=== PATIENT | female | born 1970 | race Caucasian/White ===

== ENCOUNTER 2017-05-17 09:48 | Emergency (ER) | payer OTHER ==
[~2017-05-17] VITALS: Ht 170.2 cm; Wt 147.4 kg
[~2017-05-17 09:48] MED LIST: ATIVAN0.5 MG PO; COUMADIN7.5 MG PO; CYMBALTA30 MG; FLOMAX0.4 MG PO; IBUPROFEN200 M1; IRON325 M1 PO; KEFLEX500 MG PO; NOHOMEMEDS; NORTRIPTYLINE H50 MG PO; PERCOCET 5/31 TABLET PO; PROZAC20 MG PO; TRAMADOL HCL50 MG PO; VITAMIN D250000 UNIT PO
[2017-05-17 10:55] LABS: HEMATOCRIT 39.4 % (36.0-46.0); HEMOGLOBIN 13.1 G/DL (11.9-15.5); MCH 30.3 PG (29.0-34.0); MCHC 33.2 G/DL (30.0-36.0); PLATELET COUNT 288 K/uL (156-360); RBC DIS.WIDTH-SD 47.3 % (39-53); RED BLOOD COUNT 4.33 M/uL (3.80-5.20); WHITE BLOOD COUNT 8.4 K/uL (4.1-10.2)
[2017-05-17] MEDS ORDERED: PROVERA,CYCRIN10 MG PO (14:06)
[2017-05-17] MEDS ORDERED: PERCOCET 5/31 TABLET PO (14:06)
[2017-05-17 14:32] VITALS: BP 140/84
== END 2017-05-17 14:34 | disposition home or self-care (01) ==
LOC: EME 09:48
PROVIDERS: Physician Assistant
DX: D25.9 Leiomyoma of uterus, unspecified (principal); N92.6 Irregular menstruation, unspecified; F32.9 Major depressive disorder, single episode, unspecified; Z86.718 Personal history of other venous thrombosis and embolism; Z79.01 Long term (current) use of anticoagulants; F17.200 Nicotine dependence, unspecified, uncomplicated; Z91.040 Latex allergy status
CPT/HCPCS: 76856; 84702; 85027; 99281; 99284

== ENCOUNTER 2017-09-07 10:15 | Emergency (ER) | payer OTHER ==
[~2017-09-07] VITALS: Ht 170.2 cm; Wt 140.9 kg
[~2017-09-07 10:15] MED LIST changes: +PROVERA,CYCRIN10 MG PO
[2017-09-07] MEDS ORDERED: PERCOCET 5/31 TABLET PO (12:45)
[2017-09-07] MEDS ORDERED: NAPROSYN500 MG PO (12:45)
[2017-09-07 13:19] VITALS: BP 148/97
== END 2017-09-07 13:05 | disposition home or self-care (01) ==
LOC: EME 10:15
DX: M25.561 Pain in right knee (principal); M17.11 Unilateral primary osteoarthritis, right knee; Z86.718 Personal history of other venous thrombosis and embolism; M79.661 Pain in right lower leg; M25.761 Osteophyte, right knee; E66.01 Morbid (severe) obesity due to excess calories; Z68.42 Body mass index [BMI] 45.0-49.9, adult; F17.200 Nicotine dependence, unspecified, uncomplicated
CPT/HCPCS: 73564; 93971; 99281; 99283

== ENCOUNTER 2017-10-18 18:33 | Emergency (ER) | payer OTHER ==
[~2017-10-18] VITALS: Ht 170.2 cm; Wt 140.1 kg
[~2017-10-18 18:33] MED LIST changes: +NAPROSYN500 MG PO
[2017-10-18 19:31] LABS: BASOPHIL (%) 0.3 % (0-1); EOSINOPHIL (%) 2.6 % (0-5); EOSINOPHIL COUNT 0.2 K/uL (0-0.3); HEMATOCRIT 38.6 % (36.0-46.0); HEMOGLOBIN 12.9 G/DL (11.9-15.5); IMMATURE GRANULOCYTE (%) 0.5 % (0.0-0.7); LYMPHOCYTE (%) 37.1 % (15-42); LYMPHOCYTE COUNT 2.3 K/uL (1.0-2.8); MCH 29.1 PG (29.0-34.0); MCHC 33.4 G/DL (30.0-36.0); MCV 87.1 FL (83-99); MONOCYTE (%) 6.7 % (3-12); MONOCYTE COUNT 0.4 K/uL (0-0.8); NEUTROPHIL (%) 52.8 % (45-76); NEUTROPHIL COUNT 3.3 K/uL (1.8-6.4); PLATELET COUNT 236 K/uL (156-360); RBC DIS.WIDTH-CV 15.7 % (11.8-14.6); RBC DIS.WIDTH-SD 50.8 % (39-53); RED BLOOD COUNT 4.43 M/uL (3.80-5.20); WHITE BLOOD COUNT 6.3 K/uL (4.1-10.2)
[2017-10-18 19:39] LABS: ALBUMIN 3.6 g/dL (3.2-4.8); CHLORIDE 109 mEq/L (99-109); POTASSIUM 3.5 mEq/L (3.7-5.4); SODIUM 140 mEq/L (136-147)
[2017-10-18 19:42] LABS: GLUCOSE 95 mg/dL (70-99); TOTAL PROTEIN 6.3 g/dL (6.4-8.3)
[2017-10-18 19:44] LABS: TOTAL BILIRUBIN 0.4 mg/dL (0.0-1.0)
[2017-10-18 19:45] LABS: ALKALINE PHOSPHATASE 124 IU/L (3-129)
[2017-10-18 19:45] LABS: APPEARANCE CLOUDY ((CLEAR)); BILIRUBIN NEGATIVE; BLOOD NEGATIVE; COLOR YELLOW ((YELLOW)); GLUCOSE (STRIP) NEGATIVE; KETONES NEGATIVE; LEUKOCYTES LARGE; NITRITE NEGATIVE; PROTEIN (STRIP) 30; SPECIFIC GRAVITY 1.035 (1.000-1.030)
[2017-10-18 19:46] LABS: CREATININE 0.7 mg/dL (0.6-1.3); GFR ESTIMATE (CALCULATED) > 59 mL/min/
[2017-10-18 19:47] LABS: AST (GOT) 46 IU/L (2-34); DIRECT BILIRUBIN 0.2 mg/dL (0.0-0.3); UREA NITROGEN (BUN) 27 mg/dL (9-23)
[2017-10-18 19:48] LABS: ALT (GPT) 57 IU/L (3-49)
[2017-10-18 19:49] LABS: LIPASE 18 U/L (1.0-51.0)
[2017-10-18 19:58] LABS: BACTERIA 1+ /HPF; EPITHELIAL CELLS 3+ /HPF; MUCUS 1+ /LPF; RED BLOOD CELLS NONE SEEN /HPF (0-5); WHITE BLOOD CELLS 30-40 /HPF (0-5)
[2017-10-18 23:16] LABS: APPEARANCE CLEAR ((CLEAR)); BILIRUBIN NEGATIVE; BLOOD NEGATIVE; COLOR YELLOW ((YELLOW)); GLUCOSE (STRIP) NEGATIVE; KETONES NEGATIVE; LEUKOCYTES LARGE; NITRITE NEGATIVE; PROTEIN (STRIP) NEGATIVE; UROBILINOGEN 0.2 MG/DL (0.2-1.0)
[2017-10-18 23:18] LABS: SPECIFIC GRAVITY > 1.060 (1.000-1.030)
[2017-10-18 23:28] LABS: UCUL ADDED? NO
[2017-10-18 23:36] LABS: BACTERIA NONE SEEN /HPF; EPITHELIAL CELLS 2+ /HPF; MUCUS NONE SEEN /LPF; RED BLOOD CELLS 0-5 /HPF (0-5); WHITE BLOOD CELLS 0-5 /HPF (0-5)
[2017-10-19] MEDS ORDERED: MOTRIN800 MG PO (00:21)
[2017-10-19 00:57] VITALS: BP 145/88
== END 2017-10-19 00:57 | disposition home or self-care (01) ==
LOC: EME 18:33
PROVIDERS: Physician Assistant
DX: R10.32 Left lower quadrant pain (principal); R03.0 Elevated blood-pressure reading, without diagnosis of hypertension; R11.0 Nausea; M54.9 Dorsalgia, unspecified; K57.30 Diverticulosis of large intestine without perforation or abscess without bleeding; Z87.442 Personal history of urinary calculi; Z79.01 Long term (current) use of anticoagulants; F17.200 Nicotine dependence, unspecified, uncomplicated
CPT/HCPCS: 74177; 80048; 80076; 81003; 83690; 85025; 87086; 99281; 99285; J1885; J3010; J7030